=== PATIENT | male | born 1980 | race American Indian/Alaskan Native ===

== ENCOUNTER 2017-06-08 13:58 | Emergency (ER) | payer OTHER ==
--- NOTE | 2017-06-08 16:21 | Emergency Department Report ---
HPI - General Chief Complaint: Pain General Time Seen by Provider: 06/08/17 16:08 - HPI HPI: Patient here reports left jaw and facial swelling that started yesterday. He denies any toothache. Denies any difficulty swallowing or drooling.Any sore throat. Denies any fever or chills. Denies any shortness of breath or chest pain. Denies similar incident in the past. Pain to left facial ears 8 out of 10 and feels sore. He said he took [id number] pain medication and it didn 't help. Denies any facial trauma. ED Past Medical Hx - Past Medical History Previous Medical History?: No - Surgical History Past Surgical History?: No - Family History Family history: hypertension - Social History Smoking Status: Current Some Day Smoker Substance Use Type: Alcohol - Medications Home Medications: Home Medications Medication Instructions Recorded Confirmed Last Taken Type Acetaminophen/Codeine [Tylenol 1 tab PO Q6H PRN 3 Days #12 tab 06/08/17 Unknown Rx /Codeine # 3 tab] Clindamycin [Clindamycin CAP] 300 mg PO Q8H 10 Days #30 cap 06/08/17 Unknown Rx Ibuprofen [Motrin] 600 mg PO Q8H PRN 5 Days #15 tablet 06/08/17 Unknown Rx ED Review of Systems ROS: Stated complaint: LEFT SIDE FACIAL SWELLING Other details as noted in HPI Comment: All other systems reviewed and negative Constitutional: no symptoms reported ENT: other (left facial swelling and pain). denies: throat pain, congestion Respiratory: no symptoms reported Cardiovascular: denies: chest pain, palpitations, dyspnea on exertion, edema, syncope Gastrointestinal: denies: abdominal pain, nausea, vomiting, diarrhea, constipation Musculoskeletal: denies: back pain, joint swelling, arthralgia, myalgia Skin: denies: rash Neurological: denies: headache, weakness, numbness, paresthesias, confusion, abnormal gait, vertigo Physical Exam - Physical Exam Vital Signs: Vital Signs 06/08/17 14:05 Temperature 97.8 F Pulse Rate 78 Respiratory 18 Rate Blood Pressure 138/96 O2 Sat by Pulse 97 Oximetry General: This is a 37-year-old male well-nourished well-developed acute distress Physical Exam: Head: Normocephalic atraumatic Ears:BIateral TM pearly coffman erythema , Doug EAC with normal exam. No mastoid bone tenderness. Mouth: Moist, no pharyngeal erythema or exudate . No tonsillar erythema or exudate. UVULA midline and oral airways patent. No peritonsillar abscess. Tongue is normal, no trismus. Multiple dental caries noted. No swelling or erythema, induration to oral mucosa. Neck: Nontender to palpate, supple, normal range of motion. No adenopathy. No c- spine tenderness. Nose: Bilateral nasal mucosa normal. No frontal or maxillary sinus tenderness. Patient with swelling to left proximal mandible bone, no erythema, positive induration. Tender to palpate. LUNGS: Breath sounds clear to auscultation bilaterally and equal. No wheezes rales or rhonchi]. HEART: Regular rate and rhythm without murmurs, rubs or gallops]. ABDOMEN: Soft, nontender, normoactive bowel sounds. No guarding, no rebound. No masses appreciated. EXTREMITIES: Normal range of motion, no pitting or edema. No clubbing or cyanosis. PSYCH: Normal mood, normal affect. SKIN: Warm, Dry, normal turgor, no rashes or lesions noted.e. Maxillary and frontal sinuses tender to palpate. ED Course Vital Signs 06/08/17 14:05 Temperature 97.8 F Pulse Rate 78 Respiratory 18 Rate Blood Pressure 138/96 O2 Sat by Pulse 97 Oximetry Vital Signs 06/08/17 06/08/17 14:05 20:40 Temperature 97.8 F 98.5 F Pulse Rate 78 61 Respiratory 18 16 Rate Blood Pressure 138/96 Blood Pressure 146/91 [Right] O2 Sat by Pulse 97 98 Oximetry - Reevaluation(s) Reevaluation #1: 06/08/17 17:30 Patient's received clindamycin 900 mg IV, Toradol 30 mg IV and awaiting CAT scan facial jaundice. Reevaluation #2: 06/08/17 18:30 Patient's stable. Pain controlled awaiting CT scan results. CBC and BMP is stable ED Medical Decision Making - Lab Data Result diagrams: 06/08/17 16:37 06/08/17 16:37 Vital Signs 06/08/17 06/08/17 14:05 20:40 Temperature 97.8 F 98.5 F Pulse Rate 78 61 Respiratory 18 16 Rate Blood Pressure 138/96 Blood Pressure 146/91 [Right] O2 Sat by Pulse 97 98 Oximetry - Radiology Data Radiology results: report reviewed CT scan of the facial bones with IV contrast was read by radiologist initially he read the CT scan as normal study that requested second reading he read with addendum that there may be a small amount of subcutaneous near the angle of the left side of the mandible. There is no fluid collection.. Other CT scan result to follow as health physics technician send other films for radiology to read. - Medical Decision Making D course: Is with soft tissue swelling to left facial area proximal mandible. CBC and BMP is stable. Patient had CT with IV contrast to facial bones which shows small amount of subcutaneous status and edema near the angle of the left side of the mandible. Patient was given Toradol 30 mg IV for pain. He denies any pain at present. Patient discharged home and to follow-up with dentist and also his primary care physician if he does not have one follow-up at [facility]. I discussed patient if he has difficulty swallowing, breathing, increasing swelling, inability to speak to return to the emergency room [facility] otherwise follow-up with his primary care physician and dentist in 2 days. Patient given clindamycin 900 mg IV and emergency room for soft tissue cellulitis. Patient discharged home with prescription for clindamycin and Tylenol No. 3 with Motrin Critical care attestation.: If time is entered above; I have spent that time in minutes in the direct care of this critically ill patient, excluding procedure time. ED Disposition Clinical Impression: Cellulitis of face, Facial pain, Dental caries Disposition: TO HOME OR SELFCARE Is pt being admited?: No Does the pt Need Aspirin: No Condition: Stable Instructions: Dental Caries (ED), Cellulitis (ED) Additional Instructions: Please follow up with your primary care physician and if he do not have one follow-up with [facility] Follow-up with dentist in 2 days and if he did not have one he can follow-up with [facility] If you develop difficulty talking, swallowing, fever or chills, increase in facial swelling please return to emergency room [facility] Take antibiotic as prescribed. Prescriptions: Acetaminophen/Codeine [Tylenol /Codeine # 3 tab] 1 tab PO Q6H PRN 3 Days #12 tab PRN Reason: Pain, Moderate (4-6) Clindamycin [Clindamycin CAP] 300 mg PO Q8H 10 Days #30 cap Ibuprofen [Motrin] 600 mg PO Q8H PRN 5 Days #15 tablet PRN Reason: Pain Referrals: PRIMARY CARE, [Primary Care Provider] - 06/10/17 [facility] [Outside] - 06/10/17 [facility] [Outside] - 06/10/17 Forms: Work/School Release Form(ED)
[2017-06-08] MEDS ORDERED: TORADOL IV ONE (16:23)
[2017-06-08] MEDS ORDERED: CLEOCIN 900 MG/50 mL 900 MG/50 ML BAG IV ONE (16:23)
[2017-06-08 16:51] LABS: Eosinophils % (Auto) 1.8 % (0.0-4.3); Hematocrit 46.5 % (35.5-45.6); Hemoglobin 15.2 gm/dl (11.8-15.2); Mean Corpuscular HGB Conc 33 % (32-34); Mean Corpuscular Hemoglobin 29 pg (28-32); Mean Corpuscular Volume 89 fl (84-94); Platelet Count 236 K/mm3 (140-440); Red Blood Count 5.23 M/mm3 (3.65-5.03); Red Cell Distribution Width 13.8 % (13.2-15.2)
[2017-06-08 17:22] LABS: Anion Gap 21 mmol/L; BUN/Creatinine Ratio 11; Blood Urea Nitrogen 9 mg/dL (9-20); Calcium 8.6 mg/dL (8.4-10.2); Carbon Dioxide 22 mmol/L (22-30); Chloride 98.9 mmol/L (98-107); Glucose 101 mg/dL (75-100); Potassium 3.9 mmol/L (3.6-5.0); Sodium 138 mmol/L (137-145)
--- NOTE | 2017-06-08 19:34 | Cat Scan Report ---
FINAL REPORT PROCEDURE: CT facial bones with contrast. TECHNIQUE: Computerized tomography of the facial bones and soft tissues with axial, sagittal and coronal sections was performed from the cranial aspect of the frontal sinuses to the caudal portion of the mandible following the IV injection of iodinated nonionic contrast. HISTORY: swelling, TTP lt facial area/no tooth pain COMPARISON: No prior studies are available for comparison. FINDINGS: The facial bones appear intact. There are no fractures. The paranasal sinuses and mastoid air cells are clear. The ostiomeatal complexes are patent. There is no tucker bullosa. The facial soft tissues are unremarkable. The vascular structures enhance normally. IMPRESSION: Normal study.
[2017-06-08 20:55] VITALS: BP 146/91
== END 2017-06-08 20:55 | disposition home or self-care (01) ==
LOC: ED 13:58
DX: L03.211 Cellulitis of face (principal); K02.9 Dental caries, unspecified; F17.200 Nicotine dependence, unspecified, uncomplicated
CPT/HCPCS: 36415; 70487; 80048; 85025; 96374; 96375; 99284; J1885; Q9967